=== PATIENT | male | born 1960 | race Caucasian/White ===

== ENCOUNTER → 2017-06-25 | Outpatient (CLI) | payer OTHER ==
--- NOTE | 2017-06-25 10:18 | Diagnostic Imaging Report ---
PROCEDURE:ABDOMEN-1VIEW (KUB) TECHNIQUE:Supine AP abdomen totaling 2 radiographs INDICATION:Calculus of kidney COMPARISON:[facility], DX, ABDOMEN-1VIEW (KUB), 07/29/2016, 11:39. FINDINGS: No calcifications over the kidneys or expected course of the ureters. Innumerable punctate radiopaque opacities over the left and upper abdomen, likely within the bowel or representing artifact. Normal bowel gas pattern. Right upper quadrant surgical clips. Intact skeleton. Several stable benign bone islands. CONCLUSION: No conspicuous nephrolithiasis. No interval change from July 2016. Dictated by: Win Kelly M.D. on 06/25/2017 at 10:28 Electronically approved by: Win Kelly M.D. on 06/25/2017 at 10:28
== END ==
LOC: RAD 09:42
PROVIDERS: ATTEND Urology
DX: N20.0 Calculus of kidney (principal)
CPT/HCPCS: 74018

== ENCOUNTER → 2018-05-06 | Outpatient (CLI) | payer OTHER ==
--- NOTE | 2018-05-06 10:03 | Diagnostic Imaging Report ---
PROCEDURE:X-RAY ABDOMEN - KUB COMPARISON:06/25/2017. INDICATIONS:FOLLOW UP FOR RENAL STONE. DENIES COMPLAINTS FINDINGS: Innumerable punctate radiopacities are again noted projecting over the abdomen. No suspicious calcifications project over the renal shadows or expected ureteral courses. Bowel gas pattern is nonobstructive. Regional skeletal structures are intact. Scattered stable benign bone islands. CONCLUSION: No plain film evidence of urolithiasis. Dictated by: Teo Emmanuel M.D. on 05/06/2018 at 10:13 Electronically approved by: Teo Emmanuel M.D. on 05/06/2018 at 10:13
== END ==
LOC: RAD 09:11
PROVIDERS: ATTEND Urology
DX: N20.0 Calculus of kidney (principal)
CPT/HCPCS: 74018

== ENCOUNTER → 2018-10-20 | Outpatient (CLI) | payer OTHER ==
--- NOTE | 2018-10-20 11:06 | Diagnostic Imaging Report ---
Exam: Abdominal film Clinical History: Kidney stones Comparison: None. DISCUSSION: Multiple tiny densities project over the upper abdomen, likely bowel contents. No suspicious calcifications project over the renal shadows or expected ureteral courses. No mass effect or organomegaly. Regional skeletal structures are intact. IMPRESSION: No plain film evidence of urolithiasis. Signed by: Dr. Teo Emmanuel M.D. on 10/20/2018 11:02 AM
== END ==
LOC: RAD 10:20
PROVIDERS: ATTEND Urology
DX: N20.0 Calculus of kidney (principal)
CPT/HCPCS: 74018